=== PATIENT | female | born 1955 | race Caucasian/White ===

== ENCOUNTER 2019-10-07 10:07 | Outpatient (CLI) | payer OTHER, SELFPAY ==
--- NOTE | 2019-10-07 10:29 | MM_ITS ---
WS: [id number] BILATERAL DIGITAL SCREENING MAMMOGRAPHY WITH CAD CLINICAL INFORMATION: SCREEN HISTORY: Screening mammogram. No current complaints. COMPARISON: May 22, 2018 TECHNIQUE: Bilateral CC and MLO views. FINDINGS: Scattered fibroglandular densities bilaterally. Stable ovoid densitie mid depth left breast. This is unchanged from multiple prior examinations. No suspicious focal mass, asymmetry, calcifications, or a rchitectural distortion. No evidence of malignancy. MM/[place] [id number] IMPRESSION: BI-RADS: 2-Benign FOLLOW UP: 1 Year Follow-up Recommend return to annual screening mammography.
== END 2019-10-07 10:08 | disposition home or self-care (01) ==
LOC: RADSHAW 10:17
PROVIDERS: PCP Nurse Practitioner Family; Visit Provider Nurse Practitioner Family
DX: Z12.31 Encounter for screening mammogram for malignant neoplasm of breast (principal)
CPT/HCPCS: 77067

== ENCOUNTER 2020-11-14 11:47 | Outpatient (CLI) | payer OTHER, SELFPAY ==
--- NOTE | 2020-11-14 11:53 | MM_ITS ---
WS: [id number] SCREENING DIGITAL MAMMOGRAM WITH CAD HISTORY: SCREENING COMPARISON: 06/16/2010, 06/18/2011, 05/15/2017 and 10/07/2019 Bilateral CC and MLO views submitted. Computer aided detection analyzed. Breast composition: There are scattered areas of fibroglandular density. Long-term stability of an ov oid 2.7 cm mass in the central LEFT breast. Increasing asymmetry in the central RIGHT breast measurin g 1.5 cm is just posterior to the nipple on the CC projection. Not really identified on the lateral p rojection. MM/[place] [id number] IMPRESSION: BI-RADS: 0-Incomplete: Need additional imaging evaluation FOLLOW UP: Need Additional Imaging RIGHT breast: Spot compression views (CC and MLO). True ML. Ultrasound to follo w if abnormality persists.
== END 2020-11-14 11:48 | disposition home or self-care (01) ==
LOC: RADSHAW 11:51
PROVIDERS: PCP Nurse Practitioner Family; Visit Provider Nurse Practitioner Family
DX: Z12.31 Encounter for screening mammogram for malignant neoplasm of breast (principal)
CPT/HCPCS: 77067

== ENCOUNTER 2020-11-30 09:14 | Outpatient (CLI) | payer OTHER, SELFPAY ==
--- NOTE | 2020-11-30 09:19 | US_ITS ---
WS: [id number] ADDITIONAL VIEWS RIGHT BREAST RIGHT breast ultrasound, limited HISTORY: ABNORMAL MAMMOGRAM RT BREAST COMPARISON: 11/14/2020, 10/07/2019, 05/22/2018 Compression views right CC and MLO projection. True ML also submitted. The asymmetry in the mid RIGHT breast persists but there is no distortion associated with this asymmetry. This may be normal fibrog landular density. Ultrasound will be performed. Ultrasound directed from 11-1 o'clock. There is no soft tissue mass identified. No distortion of the soft tissues. US/US breast RT limited* [id number] IMPRESSION: BI-RADS: 3-Probably Benign FOLLOW-UP: 6 Month Follow-up Asymmetry in the RIGHT breast is probably normal fibroglandular pattern. As thi s has slightly changed since the prior imaging studies consider six-month diagn ostic mammogram follow-up RIGHT breast.
== END 2020-11-30 09:15 | disposition home or self-care (01) ==
LOC: RADSHAW 09:16
PROVIDERS: PCP Nurse Practitioner Family; Visit Provider Nurse Practitioner Family
DX: R92.8 Other abnormal and inconclusive findings on diagnostic imaging of breast (principal)
CPT/HCPCS: 76642; 77065

== ENCOUNTER 2021-06-15 09:15 | Outpatient (CLI) | payer OTHER, SELFPAY ==
--- NOTE | 2021-06-15 09:34 | MM_ITS ---
WS: [id number] DIAGNOSTIC RIGHT DIGITAL MAMMOGRAM WITH TOMOSYNTHESIS AND CAD HISTORY: Six-month follow-up RIGHT breast asymmetry centrally. COMPARISON: 11/30/2020, 10/07/2019, 05/15/2017 Technique: CC, MLO and ML views. Spot compression RIGHT MLO and cc. Breast composition: There are scattered areas of fibroglandular density. The asymmetry previously de scribed in the central RIGHT breast is no longer apparent. Mammographic findings are very similar to prior study from 2018. No new calcifications or increasing calcifications. No mass or distortion. MM/[place] [id number] IMPRESSION: BI-RADS: 2-Benign FOLLOW UP: See Report Patient to return to annual screening mammography. Annual mammogram is anticipa ly to be performed in October 2021.
== END 2021-06-15 09:16 | disposition home or self-care (01) ==
LOC: RAD 09:15
PROVIDERS: PCP Nurse Practitioner Family; Visit Provider Nurse Practitioner Family
DX: R92.0 Mammographic microcalcification found on diagnostic imaging of breast (principal)
CPT/HCPCS: 77061

== ENCOUNTER → 2021-10-24 11:44 | Outpatient (BNVA) | payer OTHER, SELFPAY | PROVIDERS: PCP Family Medicine; Visit Provider Family Medicine | DX: Z12.39 Encounter for other screening for malignant neoplasm of breast (principal); Z91.89 Other specified personal risk factors, not elsewhere classified; D69.59 Other secondary thrombocytopenia; T50.905A Adverse effect of unspecified drugs, medicaments and biological substances, initial encounter; I10 Essential (primary) hypertension; E78.5 Hyperlipidemia, unspecified; R73.9 Hyperglycemia, unspecified; G47.30 Sleep apnea, unspecified | CPT/HCPCS: 80053; 80061; 83036; 83721; 85025 ==

== ENCOUNTER → 2021-10-25 10:00 | Outpatient (BNVA) | payer OTHER, SELFPAY | PROVIDERS: PCP Family Medicine; Visit Provider Family Medicine | DX: Z12.39 Encounter for other screening for malignant neoplasm of breast (principal); Z91.89 Other specified personal risk factors, not elsewhere classified; D69.59 Other secondary thrombocytopenia; T50.905A Adverse effect of unspecified drugs, medicaments and biological substances, initial encounter; I10 Essential (primary) hypertension; E78.5 Hyperlipidemia, unspecified; R73.9 Hyperglycemia, unspecified; G47.30 Sleep apnea, unspecified | CPT/HCPCS: 84443 ==

== ENCOUNTER 2021-11-16 10:35 | Outpatient (CLI) | payer OTHER, SELFPAY ==
--- NOTE | 2021-11-16 10:45 | MM_ITS ---
WS: [id number] BILATERAL SCREENING DIGITAL TOMOSYNTHESIS MAMMOGRAM WITH CAD HISTORY: breast cancer screening COMPARISON: 10/07/2019, 11/14/2020, 05/22/2018 and 04/25/2016 Bilateral CC and MLO views with tomosynthesis and synthetic mammography submitted. Computer aided det ection analyzed. Breast composition: There are scattered areas of fibroglandular density. No suspicious masses, microc alcifications or architectural distortion. Long-term stability of a well-circumscribed ovoid mass shanel tral LEFT breast measuring 2.8 x 1.5 cm. No new mass or distortion. MM/[place] [id number] IMPRESSION: BI-RADS: 2-Benign FOLLOW UP: 1 Year Follow-up
== END 2021-11-16 10:36 | disposition home or self-care (01) ==
PROVIDERS: PCP Family Medicine; Visit Provider Family Medicine
DX: Z12.31 Encounter for screening mammogram for malignant neoplasm of breast (principal)
CPT/HCPCS: 77063; 77067

== ENCOUNTER → 2022-06-25 09:53 | Outpatient (BNVA) | payer MEDICARE, OTHER, SELFPAY | PROVIDERS: PCP Family Medicine; Visit Provider Family Medicine | DX: I10 Essential (primary) hypertension (principal); E78.5 Hyperlipidemia, unspecified; R73.9 Hyperglycemia, unspecified; D69.59 Other secondary thrombocytopenia; T50.905A Adverse effect of unspecified drugs, medicaments and biological substances, initial encounter; F41.9 Anxiety disorder, unspecified; G47.30 Sleep apnea, unspecified; M19.90 Unspecified osteoarthritis, unspecified site | CPT/HCPCS: 80048; 80061; 83036; 85025 ==

== ENCOUNTER → 2022-07-10 08:10 | Outpatient (BNVA) | payer MEDICARE, OTHER, SELFPAY | PROVIDERS: PCP Family Medicine; Visit Provider Family Medicine | DX: E78.5 Hyperlipidemia, unspecified (principal); R73.9 Hyperglycemia, unspecified | CPT/HCPCS: 85025 ==

== ENCOUNTER 2022-11-28 14:03 | Outpatient (CLI) | payer MEDICARE, OTHER, SELFPAY ==
--- NOTE | 2022-11-28 14:08 | MM_ITS ---
WS: [id number] Bilateral screening 3D tomosynthesis digital mammogram, 11/28/2022 Clinical Data: SCREENING Comparison: 11/16/2021 06/16/2019 to 11/30/2020 10/14/2020 10/07/2019, 05/22/2018, 05/15/2017, 04/25/2016, 03/22, 08/12/2013, 06/16/2012, 06/18/2011, 06/16/2010, 06/15/2009 Findings: The breast parenchymal pattern shows fibroglandular tissue. No spiculated masses or clustered calcifi cations are seen. There are no secondary signs of carcinoma. There is a stable 2.7 cm nodule in the c entral portion of the left breast. There are lymph nodes in both axilla. Impression: 1. Negative bilateral mammogram unchanged. 2. Recommend annual screening mammograms. MM/[place] [id number] BIRADS: 1-Negative FOLLOW UP: 1 Year Follow-up The CAD calibration checker was used.
== END 2022-11-28 14:04 | disposition home or self-care (01) ==
PROVIDERS: PCP Family Medicine; Visit Provider Family Medicine
DX: Z12.31 Encounter for screening mammogram for malignant neoplasm of breast (principal)
CPT/HCPCS: 77063; 77067

== ENCOUNTER 2022-12-11 10:34 | Observation (INO) | payer MEDICARE, OTHER, SELFPAY ==
--- NOTE | 2022-12-07 10:23 | ANES.PREANE2 ---
Pre-Anesthetic Assessment Height/Weight: Height 1.8 m Operation Date: 12/11/22 08:40 Proposed Procedures p Anterior colporrhaphy 44635, single incision midurethral sling 31430,N81.10(Not Applicable) - Manuel Reyes MD s Sling Single Incision Midurethral Sling(Not Applicable) - Manuel Reyes MD Familial anesthetic complications: none Social No alcohol and No tobacco Exam alert, oriented x 3, clear to auscultation bilaterally and regular rate & rhythm Airway Dentition: false CV/HEM Hypertension Metabolic Hyperlipidemia Anesthetic Plan ASA status: 2 Anesthesia: General Risk of > 500 ml blood loss (7ml/kg in children): No Medications/Allergies Home Medications Medication Instructions Recorded Confirmed Last Taken Type atorvastatin 40 mg tablet See Rx Instructions .Route 07/02/22 12/07/22 12/06/22 Rx .COMPLEX #90 tabs ezetimibe 10 mg tablet See Rx Instructions .Route 07/02/22 12/07/22 12/07/22 Rx .COMPLEX #90 tabs CPAP supplies #1 ea 08/27/22 12/03/22 Unknown Rx amlodipine 5 mg tablet See Rx Instructions .Route 09/03/22 12/07/22 12/07/22 Rx .COMPLEX #90 tabs losartan 100 mg tablet See Rx Instructions .Route 09/03/22 12/07/22 12/07/22 Rx .COMPLEX #90 tabs escitalopram oxalate 10 mg tablet 15 mg PO DAILY #90 tabs 09/17/22 12/03/22 12/07/22 Rx gabapentin 300 mg capsule 300 mg PO TID 90 days #270 caps 09/17/22 12/07/22 12/07/22 Rx lidocaine 5 % topical patch 1 patch topical DAILY #30 ea 09/17/22 12/07/22 12/07/22 Rx methocarbamol 750 mg tablet 750 mg PO QID 90 days #360 tabs 09/17/22 12/07/22 12/07/22 Rx indapamide 2.5 mg tablet See Rx Instructions .Route 09/24/22 12/07/22 12/07/22 Rx .COMPLEX #90 tabs Allergies Allergy/AdvReac Type Severity Reaction Status Date / Time penicill Allergy rash Uncoded 09/27/22 14:44 [facility] Anesthesia Medical History Anxiety At high risk for breast cancer Cholelithiases Drug-induced ITP HCTZ-induced ITP History of abnormal mammogram History of kidney stones History of tobacco use Hyperlipidemia Hypertension Low back pain Lumbar spondylolysis Retinal hemorrhage of right eye Sleep apnea with use of continuous positive airway pressure (CPAP) Surgical History History of appendectomy History of bladder suspension procedure History of bone marrow biopsy History of bunionectomy of left great toe History of carpal tunnel surgery of right wrist History of hysterectomy Family History Mother Cancer breast Father CAD (coronary artery disease) Sister Cancer breast Social History Smoking and tobacco/nicotine status: former use of tobacco/nicotine Quit status (tobacco/nicotine): has quit using Year quit tobacco: 2020 Former quit date comment: 40 pack year history Substance/Drug Use: never Data Anesthesia Cardiac Studies: No Data to Display
[2022-12-07 10:28] LABS: Add Urine Microscopic? NO; Charge for UA Resulting for Rev
[2022-12-07 10:43] LABS: Basophils # 0.1 10^3/uL (0.0-0.1); Basophils % 0.6 %; Eosinophils # 0.3 10^3/uL (0.0-0.8); Eosinophils % 4.1 %; Lymphocytes # 2.1 10^3/uL (0.8-4.8); Lymphocytes % 26.4 %; Mean Corpuscular HGB Conc 34.8 g/dL (30-55); Mean Corpuscular Hemoglobin 30.5 pg (27-33); Mean Corpuscular Volume 87.7 fl (85-98); Mean Platelet Volume 11.4 fL (7.4-10.4); Monocytes # 0.5 10^3/uL (0.2-0.9); Monocytes % 6.3 %; Neutrophils # 4.86 10^3/uL (1.8-7.7); Neutrophils % 62.5 %; Nucleated Red Blood Cells % 0 %; Platelet Count 187 10^3/cmm (157-399); Red Blood Count 4.56 10^6/uL (3.85-5.65); Red Cell Distribution Width 12.6 % (12.1-15.1); White Blood Count 7.79 10^3/uL (3.29-11.43)
[2022-12-07 10:49] LABS: Urine Color Light yellow (Yellow)
[2022-12-07 10:50] LABS: Bilirubin Urine Neg (Negative); Blood Urine Neg (Negative); Glucose Urine UA Norm (Normal); Ketones Urine Negative (Negative); Leukocyte Esterase Urine Negative (Negative); Nitrate Urine Negative (Negative); Protein Urine Neg (Negative); Specific Gravity, Urine 1.005 (1.005-1.030); Sulfosalicylic Acid Urine Negative (Negative); Urine Appearance Clear (CLEAR); Urobilinogen Urine Norm (Negative); pH Urine 8 (5-7)
[2022-12-07 10:55] LABS: Alanine Aminotransferase 17 U/L (0-33); Albumin Level 4.3 g/dL (3.5-5.2); Alkaline Phosphatase 99 U/L (35-105); Anion Gap 16.5 (5-19); Aspartate Amino Transferase 17 U/L (0-32); Blood Urea Nitrogen 12 mg/dL (8-23); Calcium 9.4 mg/dL (8.5-10.5); Carbon Dioxide 26 mmol/L (22-29); Chloride 100 mmol/L (98-107); Globulin 2.8 g/dL (1.3-4.6); Glucose 147 mg/dL (65-115); Osmolality Calculated 290 mOsm/kg (285-295); Potassium 3.5 mmol/L (3.5-5.1); Sodium 139 mmol/L (136-145); Total Bilirubin 0.6 mg/dL (0.15-1.2); Total Protein 7.1 g/dL (6.6-8.7)
[2022-12-11] VITALS (20 sets, daily range): BP systolic 121–177; BP diastolic 57–90; PULSE 48–72; RESP 13–28; TEMP 36.2–37.1; O2SAT 89–98; BMI 32.8
[2022-12-11] MEDS: enoxaparin 40 mg/0.4 mL Syringe SUBCUT (07:37)
[2022-12-11] MEDS: scopolamine 1.5 Patch 1 PATCH TRANSDERMA (07:38)
--- NOTE | 2022-12-11 07:38 | P.ANESUD_ITS ---
Pre-Anesthetic Update Pre-Anesthetic Assessment: Date of Surgery/Procedure: 12/11/22 Preop Marika gnosis: Cystocele stage III, mixed urinary incontinence Proposed Procedure: Operation Date: 12/11/22 08:40 Proposed Procedures p Anterior colporrhaphy 26273, single incision midurethral sling 16571,N81.10(Not Applicable) - Manuel eRyes MD s Sling Single Incision Midurethral Sling(Not Applicable) - Manuel Reyes MD Any changes to Pre-Anesthetic Assessment?: No Last Intake: Intake Last Liquid Date 12/10/22 Last Liquid Time 23:00 Last Solid Date 12/10/22 Last Solid Time 17:00 Vitals: Pulse Rhythm Regular 12/11/22 07:09 Pulse Strength 3+ Normal 12/11/22 07:09 Oxygen Delivery Me thod Room Air 12/11/22 07:09 Exam: Pre-Anes Outpt Exam: alert, oriented x 3, clear to auscultation bilaterally and regular rate & rhythm Cardiac Studies: No Data to Display
--- NOTE | 2022-12-11 07:38 | P.ANESUD_ITS ---
Pre-Anesthetic Update Pre-Anesthetic Assessment: Date of Surgery/Procedure: 12/11/22 Preop Marika gnosis: Cystocele stage III, mixed urinary incontinence Proposed Procedure: Operation Date: 12/11/22 08:40 Proposed Procedures p Anterior colporrhaphy 69213, single incision midurethral sling 72366,N81.10(Not Applicable) - Manuel Reyes MD s Sling Single Incision Midurethral Sling(Not Applicable) - Manuel Reyes MD Any changes to Pre-Anesthetic Assessment?: No Last Intake: Intake Last Liquid Date 12/10/22 Last Liquid Time 23:00 Last Solid Date 12/10/22 Last Solid Time 17:00 Vitals: Pulse Rhythm Regular 12/11/22 07:09 Pulse Strength 3+ Normal 12/11/22 07:09 Oxygen Delivery Me thod Room Air 12/11/22 07:09 Exam: Pre-Anes Outpt Exam: alert, oriented x 3, clear to auscultation bilaterally and regular rate & rhythm Other Pertinent Information: Other Pertinent Information: Took am BP med Cardiac Studies: No Data to Display
[2022-12-11] MEDS: sodium chloride 0.9% 1,000 ML 30 ML IV (07:50)
--- NOTE | 2022-12-11 08:34 | W.PM.OPSUD ---
Surgery/Procedure H&P Update DATE OF PROCEDURE: December 11, 2022 DATE H&P PERFORMED: 12/03/22 H&P UPDATE INFORMATION: I have reviewed H&P completed within last 30 days, I have examined patient prior to procedure and No changes to prior documentation PREOP DIAGNOSIS: Cystocele stage III, mixed urinary incontinence PLANNED PROCEDURE: Operation Date: 12/11/22 08:40 Proposed Procedures p Anterior colporrhaphy 78935, single incision midurethral sling 30581,N81.10(Not Applicable) - Manuel Reyes MD s Sling Single Incision Midurethral Sling(Not Applicable) - Manuel Reyes MD
[2022-12-11] MEDS: ceFAZolin 2,000 MG in sodium chloride 0.9% (plus) 50 ML 100 MG IV (08:44)
[2022-12-11] MEDS: lidocaine-epi 2% 20 mL INJ INJECTION (09:55)
[2022-12-11] MEDS: estrogens Conjugated Cream 30 gm 1 APPLIC VAGINAL (10:09)
--- NOTE | 2022-12-11 10:21 | P.OP_ITS ---
Operative Report Date of procedure: December 11, 2022 Pre-op diagnosis: Cystocele stage III Mixed urinary incontinence Post-op diagnosis: Same as above Procedure done: Anterior colporrhaphy augmented with allograft Single incision mid urethral sling Cystoscopy Surgeon: Manuel Reyes MD Estimated blood loss (mL): 100 IV fluids (mL): 900 Urine output (mL): 150 Procedure: After obtaining informed consent, the patient was taken to the operating room and placed in the supine position, given general anesthesia, and prepped and draped in sterile fashion. The abdomen, vulva and vagina were prepped and draped in a sterile manner. A time out procedure was performed. The anterior vaginal mucosa beneath the midurethra was infiltrated with 0.5% Marcaine with epinephrine. A vertical midline incision was made beneath the midurethra, nearly 1.5 cm length. Careful submucosal dissection was performed bilaterally up to the interior portion of the inferior pubic ramus. The insertion of adductor longus tendon on the patient?s pubic ramus was identified as reference land mansi. Palpated the notch along the internal edge of ischiopubic ramus where the adductor longus tendon and the inferior pubic ramus meet. The Altis single incision sling (SIS) was selected. Then the needle of the SIS inserted aiming at the location of this notch. One of the integrated self-fixating tips place onto the needle by sliding it over the end of the needle. The needle/sling assembly was inserted toward the location of identified reference notch making sure that the flat of the handle is perpendicular to the desired path. The needle was tracked along the posterior surface of the ischiopubic ramus until the midline mansi on the mesh is approximately at the midline position under the urethra. The needle was removed and the same was repeated on the contralateral side until the appropriate sling tension under the urethra was achieved ensuring that the mesh lays flat. The needle was removed and vaginal incision was closed in a running interlocking fashion with 2-0 Vicryl. The vaginal mucosa was then injected in the midline with normal saline. The vaginal mucosa was scored in the midline with the Bovie approximately 1 cm medi al to the urethral meatus to 1 cm distal to the vaginal cuff. This vaginal mucosa was then undermined and then incised in the midline with the Metzenbaum scissors. The lateral aspects of the vaginal mucosa were then grasped with the Allis clamps and the vaginal mucosa was then dissected off the underlying fascia with the Metzenbaum scissors. Again, there was noted to be quite a bit of oozing at the incision, which was controlled with cautery. After adequate dissection was performed, bilaterally. An Coloplast Dermis allograft modified at time of application to fit spacea, 3x3 cm piece . The Coloplast allograft placed in front of cystocele ready to be implanted facing the vagina mucosa. Suture is placed at distal end of graft and placed towards vaginal cuff. Final suture is placed on proximal portion of the graft to complete the placement overlying the bladder. Then Interrupted vertical mattress sutures of 0 Vicryl were used to elevate the cystocele superiorly. The excessive vaginal mucosa was then trimmed with the Metzenbaum scissors and the vaginal mucosa was then reapproximated in the running interlocking fashion with 2-0 Vicryl. Then the Roberson catheter was removed and cystoscope was inserted. The bladder was filled with sterile water. Complete evaluation of the bladder mucosa was performed noting no lacerations, dimpling, tears, bleeding of the mucosa or muscular layers. Both ureteral orifices were identified. Prompt excretion of urine from both ureteral orifices was noted. Cystoscope was withdrawn. The Roberson catheter was replaced. Excellent hemostasis was obtained. A vaginal pack is placed overnight as postoperative support for the vaginal tissues after graft placement and closure of vaginal incisions. Sponge, lap, needle, and instrument counts were correct times three. The patient was taken to the recovery room, awake and in stable condition.
--- NOTE | 2022-12-11 10:51 | PC.NURSE ---
1049 - Report called to [facility] - notified OB nurse of packing in place - as well as current vital signs and medications given in OR
[2022-12-11] MEDS: dextrose 5%-lactated ringers 1,000 ML 125 ML IV ×2 (11:30→22:51)
[2022-12-11] MEDS: HYDROcodone-acetaminophen 5-325 mg Tablet PO ×2 (11:30→20:59)
[2022-12-11] MEDS: ketorolac 30 mg/mL INJ IVP ×3 (11:43→22:50)
[2022-12-11] MEDS: docusate sodium 100 mg Capsule PO (16:37)
--- NOTE | 2022-12-11 16:56 | ANE.PACU2 ---
Inpatient post-anesthesia follow up: Airway intact: Yes Vital signs: Temperature 97.9 F Pulse Rate 53 Respiratory Rate 16 Blood Pressure 137/64 Pulse Oximetry 91 Oxygen Delivery Me thod Room Air Oxygen Flow Rate Fraction of Inspir ed Oxygen Hydration adequate: Yes Nausea and vomiting: No Pain level: 3 Mental status: Baseline
[2022-12-11] MEDS: gabapentin 300 mg Capsule PO (18:23)
[2022-12-11] MEDS: escitalopram 10 mg Tablet 15 MG PO (20:56)
[2022-12-11] MEDS: atorvastatin 40 mg Tablet PO (20:57)
[2022-12-11] MEDS: ezetimibe 10 mg Tablet PO (20:57)
[2022-12-11] MEDS: amlodipine 5 mg Tablet PO (20:57)
[2022-12-12 04:00] VITALS: BP 138/72; PULSE 52; RESP 15; TEMP 37; O2SAT 98
[2022-12-12] MEDS: HYDROcodone-acetaminophen 5-325 mg Tablet PO (04:44)
[2022-12-12 05:17] LABS: Hematocrit 32.2 % (36-47); Mean Corpuscular HGB Conc 32.9 g/dL (30-55); Mean Corpuscular Hemoglobin 29.9 pg (27-33); Mean Platelet Volume 10.2 fL (7.4-10.4); Platelet Count 172 10^3/cmm (157-399); Red Blood Count 3.54 10^6/uL (3.85-5.65); Red Cell Distribution Width 12.3 % (12.1-15.1); White Blood Count 12.56 10^3/uL (3.29-11.43)
--- NOTE | 2022-12-12 05:26 | PC.NURSE ---
THIS SLOTS MANAGER REMOVED VAGINAL PACKING AT APPROXIMATELY 0515. PT TOLERATED WELL.
[2022-12-12 08:51] VITALS: BP 118/56
[2022-12-12] MEDS: gabapentin 300 mg Capsule PO (08:51)
[2022-12-12] MEDS: methocarbamol 750 mg Tablet PO (08:51)
[2022-12-12] MEDS: losartan 50 mg Tablet 100 MG PO (08:51)
[2022-12-12] MEDS: docusate sodium 100 mg Capsule PO (08:54)
--- NOTE | 2022-12-12 10:03 | PM.OBGYDC ---
Discharge Providers PHOTO FINISH PHOTOGRAPHER Date of Admission: 12/11/22 10:34 Date of Discharge: 12/12/22 Attending Provider at Admission: Manuel Reyes MD Attending Provider at Discharge: Manuel Reyes MD Primary Care Provider: Kaitlin Rankin MD Reason for Visit Reason for Visit: N81.10 Hospital Course Hospital Course Mrs. Mercado 66-year-old female post hysterectomy with a history of cystocele and urinary incontinence. Admitted for an anterior colporrhaphy and single incision mid urethral sling. The procedures were performed without complications. She is afebrile and hemodynamically stable postoperative day 1. Ambulating without difficulty. Tolerating diet well. PVR within normal limits.. She was counseled regarding pelvic rest for 6 weeks (no sex, no tampons, no vaginal douches). Return to the emergency room if any fever, increased bleeding or pain. Physical Exam Narrative: GA: Alert and oriented ?3. HEENT: WNL. Heart: Regular rate and rhythm. Lungs: Clear to auscultation bilaterally. Abdomen: Bowel sounds present, nontender, minimal tenderness. [employer]: spotting bleeding. Extremities: No edema, no cyanosis, no calves pain. Urinary Catheter Management: [place]: Cath Placed During This Visit: yes, but has since been removed by the nurse Reason for Continuing Indwelling Catheter: Decision to DC Catheter Urinary Catheter Date of Insertion: 12/11/22 Urinary Catheter Time of Insertion: 09:06 Date Urinary Catheter Removed: 12/12/22 Time Urinary Catheter Discontinued: 05:15 History History History 2 Term 2 0 Miscarriages/Ectopic 0 Living Children 2 Discharge Data Studies Completed and Pending Laboratory Results WBC 12.56 10^3/uL (3.29-11.43) H 12/12/22 05:00 RBC 3.54 10^6/uL (3.85-5.65) L 12/12/22 05:00 Hgb 10.60 g/dL (11.27-16.99) L 12/12/22 05:00 Hct 32.2 % (36-47) L 12/12/22 05:00 MCV 91.0 fl (85-98) 12/12/22 05:00 MCH 29.9 pg (27-33) 12/12/22 05:00 MCHC 32.9 g/dL (30-55) 12/12/22 05:00 RDW 12.3 % (12.1-15.1) 12/12/22 05:00 Plt Count 172 10^3/cmm (157-399) 12/12/22 05:00 MPV 10.2 fL (7.4-10.4) 12/12/22 05:00 Neut % (Auto) 62.5 % 12/07/22 10:00 Lymph % (Auto) 26.4 % 12/07/22 10:00 [facility] % (Auto) 6.3 % 12/07/22 10:00 Eos % (Auto) 4.1 % 12/07/22 10:00 Baso % (Auto) 0.6 % 12/07/22 10:00 Neut # (Auto) 4.86 10^3/uL (1.8-7.7) 12/07/22 10:00 Lymph # (Auto) 2.1 10^3/uL (0.8-4.8) 12/07/22 10:00 [facility] # (Auto) 0.5 10^3/uL (0.2-0.9) 12/07/22 10:00 Eos # (Auto) 0.3 10^3/uL (0.0-0.8) 12/07/22 10:00 Baso # (Auto) 0.1 10^3/uL (0.0-0.1) 12/07/22 10:00 Nucleated RBC % (auto) 0 % 12/07/22 10:00 Nucleated RBCs # 0.0 /100WBC 12/07/22 10:00 Sodium 139 mmol/L (136-145) 12/07/22 10:00 Potassium 3.5 mmol/L (3.5-5.1) 12/07/22 10:00 Chloride 100 mmol/L (98-107) 12/07/22 10:00 Carbon Dioxide 26 mmol/L (22-29) 12/07/22 10:00 Anion Gap 16.5 (5-19) 12/07/22 10:00 BUN 12 mg/dL (8-23) 12/07/22 10:00 Creatinine 0.7 mg/dL (0.5-0.9) 12/07/22 10:00 GFR Calculation 84.0 mL/min (90-130) L 12/07/22 10:00 Glucose 147 mg/dL (65-115) H 12/07/22 10:00 Calculated Osmolality 290 mOsm/kg (285-295) 12/07/22 10:00 Calcium 9.4 mg/dL (8.5-10.5) 12/07/22 10:00 Total Bilirubin 0.6 mg/dL (0.15-1.2) 12/07/22 10:00 AST 17 U/L (0-32) 12/07/22 10:00 ALT 17 U/L (0-33) 12/07/22 10:00 Alkaline Phosphatase 99 U/L (35-105) 12/07/22 10:00 Total Protein 7.1 g/dL (6.6-8.7) 12/07/22 10:00 Albumin 4.3 g/dL (3.5-5.2) 12/07/22 10:00 Globulin 2.8 g/dL (1.3-4.6) 12/07/22 10:00 Urine Color Light yellow (Yellow) 12/07/22 10:00 Urine Appearance Clear (CLEAR) 12/07/22 10:00 Urine pH 8 (5-7) H 12/07/22 10:00 Ur Specific [place] 1.005 (1.005-1.030) 12/07/22 10:00 Urine Protein Neg (Negative) 12/07/22 10:00 Urine Glucose (UA) Norm (Normal) 12/07/22 10:00 Urine Ketones Negative (Negative) 12/07/22 10:00 Urine Blood Neg (Negative) 12/07/22 10:00 Urine Nitrate Negative (Negative) 12/07/22 10:00 Urine Bilirubin Neg (Negative) 12/07/22 10:00 Prot Sulfosalicylic Acd Negative (Negative) 12/07/22 10:00 Urine Urobilinogen Norm mg/dL (Negative) 12/07/22 10:00 Ur Leukocyte Esterase Negative (Negative) 12/07/22 10:00 Vitals Last Vital Signs Temp 98.6 F 12/12/22 04:00 Pulse 52 L 12/12/22 04:00 Resp 15 12/12/22 04:00 BP 118/56 12/12/22 08:51 Pulse Ox 98 12/12/22 04:00 O2 Del Method CPAP 12/12/22 04:00 Results Labs OB ([facility]): Hct 32.2 % (36-47) L 12/12/22 Hgb 10.60 g/dL (11.27-16.99) L 12/12/22 Plt Count 172 10^3/cmm (157-399) 12/12/22 TSH 0.81 uIU/mL (0.27-4.20) 10/25/21 Hemoglobin A1c 6.5 % (4.0-6.0) H 06/25/22 Discharge Plan Discharge Patient Disposition: Home Condition: Stable Prescriptions: New hydrocodone-acetaminophen 5-325 mg tablet 1 tab PO Q4H PRN (Reason: pain) Qty: 20 0RF docusate sodium [Colace] 100 mg capsule 100 mg PO BID Qty: 60 0RF ferrous sulfate [Iron (ferrous sulfate)] 325 mg (65 mg iron) tablet 325 mg PO BID Qty: 60 0RF acetaminophen 325 mg capsule 325 mg PO Q4H PRN (Reason: fever or pain) Qty: 60 0RF Continued atorvastatin 40 mg tablet See Rx Instructions .ROUTE .COMPLEX Qty: 90 3RF Dose Instruction: TAKE 1 TABLET DAILY Rx Instructions: TAKE 1 TABLET DAILY ezetimibe 10 mg tablet See Rx Instructions .ROUTE .COMPLEX Qty: 90 3RF Dose Instruction: TAKE 1 TABLET DAILY Rx Instructions: TAKE 1 TABLET DAILY (DME) CPAP supplies See Rx Instructions .Route .MEDSUPPLY Qty: 1 0RF Rx Instructions: As directed losartan 100 mg tablet See Rx Instructions .ROUTE .COMPLEX Qty: 90 3RF Dose Instruction: TAKE 1 TABLET DAILY Rx Instructions: TAKE 1 TABLET DAILY amlodipine 5 mg tablet See Rx Instructions .ROUTE .COMPLEX Qty: 90 3RF Dose Instruction: TAKE 1 TABLET DAILY Rx Instructions: TAKE 1 TABLET DAILY escitalopram oxalate 10 mg tablet 15 mg PO DAILY Qty: 90 1RF gabapentin 300 mg capsule 300 mg PO TID 90 Days Qty: 270 1RF lidocaine 5 % adhesive patch,medicated 1 patch topical DAILY Qty: 30 0RF Rx Instructions: leave on most painful area for up to 12 hrs methocarbamol 750 mg tablet 750 mg PO QID 90 Days Qty: 360 1RF indapamide 2.5 mg tablet See Rx Instructions .ROUTE .COMPLEX Qty: 90 3RF Dose Instruction: TAKE 1 TABLET EVERY MORNING Rx Instructions: TAKE 1 TABLET EVERY MORNING Discharge Orders: Discharge Order (Routine); Ordered 12/12/22 Ordered By: Manuel Reyes Referrals: Manuel Reyes MD [Physician] - 12/25/22 1:30 pm (2 week- 12/25/22 @1:30 6 week- 01/21/23 @2:15) Discharge Diet: GI Soft and Soft Mechanical Discharge Activity: Limit activity as instructed Patient Instructions: Bladder Sling for Women (DC), Anterior Vaginal Repair (DC), OB Discharge Report, OB Food/Drug Interaction Guide, Opioid Safety Activity Restrictions/Additional Instructions: 1. Please call [facility] on next working day to make your post-operative appointment in 2 weeks. 2. Please stay home until you come back to the clinic on first post-hospatilization check up. 3. Please follow instructions on your medications CAREFULLY. 4. If you have abdominal incision, do not cover it unless dressing is necessary because of drainage. OK to shower, but avoid bath. Leave steri-strips until they fall off. If they are still on one week after surgery, you may remove them. 5. If you had vaginal surgery or vaginal repair, Dr. Reyes may instruct you to take SITZ bath. 6. Yellow, blood tinged odorous vaginal discharge is usually normal after hysterectomy or vaginal surgeries. 7. No SEXUAL INTERCOURSE, tampons, or douches until you are completely released from the post-operative care. 8. Avoid constipation by eating right and maybe using some Metamucil or Milk of Magnesia. 9. All prescription refills are given during the working hours. Please do no wait till it runs out. Call the clinic at [phone] before your medication runs out. The clinic will get in touch with your doctor to prescribe medications if necessary. 10. Please remain within 40 mile radius from our hospital because emergencies do happen now and then during the post-operative period. 11. If you have stairs at home, take one step at a time slowly and minimize the number of trips. It helps to stay in one floor for the next few days. No lifting except what you can lift by one hand until you are released from the post-operative care. 12. Driving is discouraged until you are well healed. It may be 3-4 weeks before you feel strong enough to drive. You should be able to turn and look through the rear window without pain and you should be able to push the brake pedal very hard without pain before you drive. No fast rules, but SAFETY should be your primary concern. DO NOT drive if you are on sedating medications such as narcotics. 13. Call the clinic (during working hours) to make urgent appointment or go to the Emergency room, if any of the following occurs: i. Vaginal bleeding becomes heavy, more than a period. ii. Incision becomes red and sore, or drains pus. iii. Your TEMPERATURE is over 100.4F or you have chill. iv. IV site becomes red and swollen (a little ``knot?? is usually OK) v. Persistent nausea and vomiting vi. Persistent constipation or diarrhea vii. Rash or allergic reaction to medications. Discharge Attestations PHOTO FINISH PHOTOGRAPHER Time Spent in Discharge Care*: greater than 30 min Coding Level of Care Code Acute Code for Chg Fwd Diagnoses
[2022-12-12 11:25] VITALS: BP 118/56; PULSE 64; RESP 16; TEMP 36.7; O2SAT 98
== END 2022-12-12 11:15 | disposition home or self-care (01) ==
LOC: OBGYN 10:35
PROVIDERS: Admitting Provider Obstetrics & Gynecology; PCP Family Medicine; Visit Provider Obstetrics & Gynecology
PROC: 0JQC0ZZ Repair Pelvic Region Subcutaneous Tissue and Fascia, Open Approach (ICD-10-PCS; CPT 57240; principal; 2022-12-11 08:40)
PROC: (CPT 57288; 2022-12-11 08:40)
DX: N81.10 Cystocele, unspecified (principal); N39.46 Mixed incontinence; Z87.891 Personal history of nicotine dependence; G47.33 Obstructive sleep apnea (adult) (pediatric); I10 Essential (primary) hypertension; E78.5 Hyperlipidemia, unspecified; Z90.710 Acquired absence of both cervix and uterus
CPT/HCPCS: 57240; 57267; 57288; 36415; 51798; 80053; 81003; 85025; 85027; 96374; 96376; C1713; C1762; G0378; J0690; J1100; J1650; J1885; J2405; J2704; J3010; J7030; J7121

== ENCOUNTER → 2023-02-20 09:13 | Outpatient (BNVA) | payer MEDICARE, OTHER, SELFPAY | PROVIDERS: PCP Family Medicine; Visit Provider Family Medicine | DX: D69.59 Other secondary thrombocytopenia (principal); T50.905A Adverse effect of unspecified drugs, medicaments and biological substances, initial encounter; R73.9 Hyperglycemia, unspecified; E78.5 Hyperlipidemia, unspecified; I10 Essential (primary) hypertension; L60.0 Ingrowing nail; M54.50 Low back pain, unspecified; F41.9 Anxiety disorder, unspecified; R05.9 Cough, unspecified | CPT/HCPCS: 80053; 80061; 83036; 85025 ==

== ENCOUNTER 2023-03-07 19:50 | Emergency (ER) | payer MEDICARE, OTHER, SELFPAY ==
[2023-03-07 19:54] VITALS: BP 208/71; PULSE 69; RESP 17; TEMP 36.6; O2SAT 96; BMI 32.1
[2023-03-07 21:33] LABS: Basophils # 0.1 10^3/uL (0.0-0.1); Basophils % 0.7 %; Eosinophils # 0.4 10^3/uL (0.0-0.8); Eosinophils % 3.5 %; Hematocrit 38.3 % (36-47); Lymphocytes % 28.7 %; Mean Corpuscular HGB Conc 33.4 g/dL (30-55); Mean Corpuscular Volume 89.9 fl (85-98); Mean Platelet Volume 10.5 fL (7.4-10.4); Monocytes # 0.6 10^3/uL (0.2-0.9); Monocytes % 5.5 %; Neutrophils # 6.42 10^3/uL (1.8-7.7); Neutrophils % 61.2 %; Nucleated Red Blood Cells % 0 %; Platelet Count 195 10^3/cmm (157-399); Red Blood Count 4.26 10^6/uL (3.85-5.65); Red Cell Distribution Width 12.7 % (12.1-15.1); White Blood Count 10.49 10^3/uL (3.29-11.43)
--- NOTE | 2023-03-07 21:36 | W.ED.BACK ---
Documented by User: Paul Tomlinson MD 03/08/23 23:00 HPI - Back Pain/Injury General: Chief Complaint: Back Pain/Injury Stated Complaint: back/bladder pain Time Seen by Provider: 03/07/23 21:36 History of Present Illness: 67-year-old female presents to the emergency department with complaints of right-sided low back pain. She states this has been ongoing since November 2022 and she states she is seen a chiropractor on a regular basis and was advised that they would be able to help correct her back pain. She states she was seen by the chiropractor yesterday and has continued to have right-sided back pain. She states the pain is to the right side of her back and does not radiate to her buttocks or her leg. 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 She states she takes gabapentin and methocarbamol and that does not help at present. She states the pain is worse with movement. She denies numbness or tingling to her extremities. She denies bowel or bladder incontinence or retention. 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 Hyperlipidemia Hypertension Surgical History S/P anterior colporrhaphy (~12/11/22) Anterior colporrhapy augmented with allograft, single incision mid urethral sling and cystoscopy performed by Eric at [facility] History of carpal tunnel surgery of right wrist History of bunionectomy of left great toe History of bladder suspension procedure History of hysterectomy History of appendectomy History of bone marrow biopsy Family History Mother Cancer breast Father CAD (coronary artery disease) Sister Cancer breast Physical Exam Narrative: EXAM NARRATIVE: Constitutional: the patient appears well nourished and with normal development. Vital signs reviewed as documented. HENMT: Normocephalic, atraumatic. External ears normal appearance without drainage. Nose without drainage, normal appearance. Mucus membranes moist. Neck is supple, No jugular venous distension, trachea is midline, no appreciable carotid bruits. No lymphadenopathy. No meningeal signs. Flexion, extension and lateral rotation is without pain. Eyes: Pupils are equal, round, reactive to light and accommodation. No scleral icterus. Extra-ocular movement are intact. Thorax is symmetrical and with equal rise and fall with respirations. Resp: Lungs are clear to auscultation. No wheezes, rales, crackles or ronchi at present. Cardio: Regular rate and rhythm. Positive S1, S2. No appreciable murmurs, rubs or gallops. GI: Abdominal exam reveals normal bowel sounds to all quadrants. No organomegaly. No obvious palpable masses noted. No hepatomegally appreciated. Soft, non-tender to palpation. Extremity: Extremities are non-edematous and both femoral and pedal pulses are 2+ and equal bilaterally. Moves all extremities well, sensation in all extremities. Neuro: Alert and oriented x4, person, place, time and situation. Cranial nerves II through XII are grossly intact, there is no focal neurological deficits that I can appreciate at present. Motor strength in the upper and lower extremities are equal and bilateral 5/5. Psych: Cooperative, calm, normal thought process, appropriate judgment. Skin: No lesions, rashes. No gross abnormalities noted. Back: Symmetrical, no obvious deformity, No CVA tenderness. Tenderness to palpation to the right lower strap muscle. No obvious signs of infection. Course Vital Signs: Vital signs: Vital Signs Temperature 97.8 F 03/07/23 19:54 Pulse Rate 57 L 03/07/23 22:54 Respiratory Rate 16 03/07/23 22:10 Blood Pressure 160/70 03/07/23 22:54 Pulse Oximetry 95 03/07/23 22:54 Oxygen Delivery Me thod Room Air 03/07/23 22:10 MDM - Back Pain/Injury Medical Decision Making Physical exam completed and documented, I will obtain radiographic examination of her lumbar and thoracic spine and provide the patient with Toradol anti-inflammatory as well as Flexeril written prescription. I have discussed the patient's case with the on-coming physician <Dr. Valentin > and they have assumed care of the patient. We have discussed the current lab/radiographic results that have been resulted and the pending tests. Medical Records I reviewed the patient's medical records. Labs I reviewed the patient's lab results. 03/07/23 21:27 03/07/23 21: Radiology Impressions Lumbar Spine X-Ray 03/07/23 22:02 IMPRESSION: 1. Lumbar spine levoscoliosis with a Tierney angle of 16 degrees between superior endplate of L1 and inferior endplate of L5. 2. Multilevel severe disc space narrowing and productive degenerative endplate changes throughout the spine. 3. Scattered vascular calcifications. Thoracic Spine X-Ray 03/07/23 22:02 IMPRESSION: 1. Multilevel moderate to severe disc space narrowing and productive degenerative endplate changes throughout spine. 2. Bibasilar atelectasis versus infiltrate. Laboratory Results WBC 10.49 10^3/uL (3.29-11.43) 03/07/23 21: RBC 4.26 10^6/uL (3.85-5.65) 03/07/23 21: Hgb 12.80 g/dL (11.27-16.99) 03/07/23: Hct 38.3 % (36-47) 03/07/23: MCV 89.9 fl (85-98) 03/07/23 21: MCH 30.0 pg (27-33) 03/07/23 21: MCHC 33.4 g/dL (30-55) 03/07/23: RDW 12.7 % (12.1-15.1) 03/07/23 21: Plt Count 195 10^3/cmm (157-399) 03/07/23: MPV 10.5 fL (7.4-10.4) H 03/07/23: Neut % (Auto) 61.2 % 03/07/23: Lymph % (Auto) 28.7 % 03/07/23 21: [place] % (Auto) 5.5 % 03/07/23: Eos % (Auto) 3.5 % 03/07/23: Baso % (Auto) 0.7 % 03/07/23: Neut # (Auto) 6.42 10^3/uL (1.8-7.7) 03/07/23: Lymph # (Auto) 3.0 10^3/uL (0.8-4.8) 03/07/23 21: [place] # (Auto) 0.6 10^3/uL (0.2-0.9) 03/07/23: Eos # (Auto) 0.4 10^3/uL (0.0-0.8) 03/07/23: Baso # (Auto) 0.1 10^3/uL (0.0-0.1) 03/07/23: Nucleated RBC % (auto) 0 % 03/07/23 Nucleated RBCs # 0.0 /100WBC 03/07/23: Sodium 137 mmol/L (136-145) 03/07/23: Potassium 3.6 mmol/L (3.5-5.1) 03/07/23: Chloride 100 mmol/L (98-107) 03/07/23: Carbon Dioxide 24 mmol/L (22-29) 03/07/23: Anion Gap 16.6 (5-19) 03/07/23 21: BUN 23 mg/dL (8-23) 03/07/23: Creatinine 0.8 mg/dL (0.5-0.9) 03/07/23: GFR Calculation 72.0 mL/min (90-130) L 03/07/23: Glucose 237 mg/dL (65-115) H 03/07/23: Calculated Osmolality 295 mOsm/kg (285-295) 03/07/23: Calcium 9.8 mg/dL (8.5-10.5) 03/07/23: Total Bilirubin 0.2 mg/dL (0.15-1.2) 03/07/23: AST 22 U/L (0-32) 03/07/23: ALT 22 U/L (0-33) 03/07/23: Alkaline Phosphatase 95 U/L (35-105) 03/07/23: Total Protein 7.3 g/dL (6.6-8.7) 03/07/23 21:27 Albumin 4.4 g/dL (3.5-5.2) 03/07/23 21:27 Globulin 2.9 g/dL (1.3-4.6) 03/07/23 21:27 Lipase 17 U/L (13-60) 03/07/23 21:27 Urine Color Colorless (Yellow) 03/07/23 21:37 Urine Appearance Clear (CLEAR) 03/07/23 21:37 Urine pH 7 (5-7) 03/07/23 21:37 Ur Specific Fries 1.010 (1.005-1.030) 03/07/23 21:37 Urine Protein Neg (Negative) 03/07/23 21:37 Urine Glucose (UA) Norm (Normal) 03/07/23 21:37 Urine Ketones Negative (Negative) 03/07/23 21:37 Urine Blood Neg (Negative) 03/07/23 21:37 Urine Nitrate Negative (Negative) 03/07/23 21:37 Urine Bilirubin Neg (Negative) 03/07/23 21:37 Urine Urobilinogen Norm mg/dL (Negative) 03/07/23 21:37 Ur Leukocyte Esterase Negative (Negative) 03/07/23 21:37 Discharge Plan Discharge Patient Disposition: Home Clinical Impression: Back pain Condition: Stable Prescriptions: New Naprosyn 500 mg tablet 500 mg PO BID PRN (Reason: pain) Qty: 20 0RF No Action gabapentin 300 mg capsule 300 mg PO TID 90 Days Qty: 270 1RF escitalopram oxalate 10 mg tablet 15 mg PO DAILY Qty: 90 1RF methocarbamol 750 mg tablet 750 mg PO QID 90 Days Qty: 360 1RF celecoxib [Celebrex] 100 mg capsule 100 mg PO BID Qty: 180 0RF guaifenesin 600 mg tablet extended release 12hr 600 mg PO BID Qty: 30 0RF estradiol 0.01 % (0.1 mg/gram) cream 1 g vaginal DAILY Qty: 42.5 0RF Rx Instructions: for 14 days oxybutynin chloride 5 mg tablet 5 mg PO DAILY Qty: 90 0RF albuterol sulfate 2.5 mg /3 mL (0.083 %) solution for nebulization 2.5 mg inhalation Q4H PRN (Reason: shortness of breath or wheezing) Qty: 75 0RF atorvastatin 40 mg tablet See Rx Instructions .ROUTE .COMPLEX Qty: 90 3RF Dose Instruction: TAKE 1 TABLET DAILY Rx Instructions: TAKE 1 TABLET DAILY ezetimibe 10 mg tablet See Rx Instructions .ROUTE .COMPLEX Qty: 90 3RF Dose Instruction: TAKE 1 TABLET DAILY Rx Instructions: TAKE 1 TABLET DAILY (DME) CPAP supplies See Rx Instructions .Route .MEDSUPPLY Qty: 1 0RF Rx Instructions: As directed losartan 100 mg tablet See Rx Instructions .ROUTE .COMPLEX Qty: 90 3RF Dose Instruction: TAKE 1 TABLET DAILY Rx Instructions: TAKE 1 TABLET DAILY amlodipine 5 mg tablet See Rx Instructions .ROUTE .COMPLEX Qty: 90 3RF Dose Instruction: TAKE 1 TABLET DAILY Rx Instructions: TAKE 1 TABLET DAILY lidocaine 5 % adhesive patch,medicated 1 patch topical DAILY Qty: 30 0RF Rx Instructions: leave on most painful area for up to 12 hrs indapamide 2.5 mg tablet See Rx Instructions .ROUTE .COMPLEX Qty: 90 3RF Dose Instruction: TAKE 1 TABLET EVERY MORNING Rx Instructions: TAKE 1 TABLET EVERY MORNING hydrocodone-acetaminophen 5-325 mg tablet 1 tab PO Q4H PRN (Reason: pain) Qty: 20 0RF Iron (ferrous sulfate) 325 mg (65 mg iron) tablet 325 mg PO BID Qty: 60 0RF Colace 100 mg capsule 100 mg PO BID Qty: 60 0RF acetaminophen 325 mg capsule 325 mg PO Q4H PRN (Reason: fever or pain) Qty: 60 0RF Discharge Orders: Discharge ED (Routine); Ordered 03/07/23 Ordered By: Stephanie Valentin Referrals: Kaitlin Rankin MD [Primary Care Provider] - 1-3 days Discharge Diet: Advance as tolerated Discharge Activity: Resume usual activity Patient Instructions: Back Pain (ED) Coding Level of Care Code ED Junior Linux Systems Administrator for Chg Fwd Documented by User: Stephanie Valentin MD 03/07/23 22:55 HPI - Back Pain/Injury General: Chief Complaint: Back Pain/Injury Stated Complaint: back/bladder pain Time Seen by Provider: 03/07/23 21:36 [facility] ED PFS: Medical History Low back pain Anxiety Lumbar spondylolysis History of kidney stones Cholelithiases History of abnormal mammogram History of tobacco use Sleep apnea with use of continuous positive airway pressure (CPAP) At high risk for breast cancer Drug-induced ITP HCTZ-induced ITP Retinal hemorrhage of right eye Hyperlipidemia Hypertension Surgical History S/P anterior colporrhaphy (~12/11/22) Anterior colporrhapy augmented with allograft, single incision mid urethral sling and cystoscopy performed by Eric at [facility] History of carpal tunnel surgery of right wrist History of bunionectomy of left great toe History of bladder suspension procedure History of hysterectomy History of appendectomy History of bone marrow biopsy Family History Mother Cancer breast Father CAD (coronary artery disease) Sister Cancer breast Course Vital Signs: Vital signs: Vital Signs Temperature 97.8 F 03/07/23 19:54 Pulse Rate 57 L 03/07/23 22:54 Respiratory Rate 16 03/07/23 22:10 Blood Pressure 160/70 03/07/23 22:54 Pulse Oximetry 95 03/07/23 22:54 Oxygen Delivery Me thod Room Air 03/07/23 22:10 MDM - Back Pain/Injury Medical Decision Making Physical exam completed and documented, I will obtain radiographic examination of her lumbar and thoracic spine and provide the patient with Toradol anti-inflammatory as well as Flexeril written prescription. I have discussed the patient's case with the on-coming physician <Dr. Valentin > and they have assumed care of the patient. We have discussed the current lab/radiographic results that have been resulted and the pending tests. Patient presents with back pain is chronic in nature x-rays here are normal she is stable for discharge she is to follow-up with PCP and return if worsening. Labs 03/07/23 21:27 03/07/23 21:27 Radiology Impressions Lumbar Spine X-Ray 03/07/23 22:02 IMPRESSION: 1. Lumbar spine levoscoliosis with a Tierney angle of 16 degrees between superior endplate of L1 and inferior endplate of L5. 2. Multilevel severe disc space narrowing and productive degenerative endplate changes throughout the spine. 3. Scattered vascular calcifications. Thoracic Spine X-Ray 03/07/23 22:02 IMPRESSION: 1. Multilevel moderate to severe disc space narrowing and productive degenerative endplate changes throughout spine. 2. Bibasilar atelectasis versus infiltrate. Laboratory Results WBC 10.49 10^3/uL (3.29-11.43) 03/07/23: RBC 4.26 10^6/uL (3.85-5.65) 03/07/23: Hgb 12.80 g/dL (11.27-16.99) 03/07/23: Hct 38.3 % (36-47) 03/07/23: MCV 89.9 fl (85-98) 03/07/23: MCH 30.0 pg (27-33) 03/07/23: MCHC 33.4 g/dL (30-55) 03/07/23: RDW 12.7 % (12.1-15.1) 03/07/23: Plt Count 195 10^3/cmm (157-399) 03/07/23: MPV 10.5 fL (7.4-10.4) H 03/07/23: Neut % (Auto) 61.2 % 03/07/23: Lymph % (Auto) 28.7 % 03/07/23: [place] % (Auto) 5.5 % 03/07/23: Eos % (Auto) 3.5 % 03/07/23: Baso % (Auto) 0.7 % 03/07/23: Neut # (Auto) 6.42 10^3/uL (1.8-7.7) 03/07/23: Lymph # (Auto) 3.0 10^3/uL (0.8-4.8) 03/07/23: [place] # (Auto) 0.6 10^3/uL (0.2-0.9) 03/07/23: Eos # (Auto) 0.4 10^3/uL (0.0-0.8) 03/07/23 21:27 Baso # (Auto) 0.1 10^3/uL (0.0-0.1) 03/07/23 21: Nucleated RBC % (auto) 0 % 03/07/23 21: Nucleated RBCs # 0.0 /100WBC 03/07/23 21: Sodium 137 mmol/L (136-145) 03/07/23 21: Potassium 3.6 mmol/L (3.5-5.1) 03/07/23 21: Chloride 100 mmol/L (98-107) 03/07/23 21: Carbon Dioxide 24 mmol/L (22-29) 03/07/23: Anion Gap 16.6 (5-19) 03/07/23 21: BUN 23 mg/dL (8-23) 03/07/23 21: Creatinine 0.8 mg/dL (0.5-0.9) 03/07/23: GFR Calculation 72.0 mL/min (90-130) L 03/07/23 21: Glucose 237 mg/dL (65-115) H 03/07/23: Calculated Osmolality 295 mOsm/kg (285-295) 03/07/23: Calcium 9.8 mg/dL (8.5-10.5) 03/07/23: Total Bilirubin 0.2 mg/dL (0.15-1.2) 03/07/23 21: AST 22 U/L (0-32) 03/07/23: ALT 22 U/L (0-33) 03/07/23 21: Alkaline Phosphatase 95 U/L (35-105) 03/07/23 21: Total Protein 7.3 g/dL (6.6-8.7) 03/07/23: Albumin 4.4 g/dL (3.5-5.2) 03/07/23: Globulin 2.9 g/dL (1.3-4.6) 03/07/23: Lipase 17 U/L (13-60) 03/07/23 21: Urine Color Colorless (Yellow) 03/07/23: Urine Appearance Clear (CLEAR) 03/07/23 21:37 Urine pH 7 (5-7) 03/07/23 21:37 Ur Specific Fries 1.010 (1.005-1.030) 03/07/23 21:37 Urine Protein Neg (Negative) 03/07/23 21:37 Urine Glucose (UA) Norm (Normal) 03/07/23 21:37 Urine Ketones Negative (Negative) 03/07/23 21:37 Urine Blood Neg (Negative) 03/07/23 21:37 Urine Nitrate Negative (Negative) 03/07/23 21:37 Urine Bilirubin Neg (Negative) 03/07/23 21:37 Urine Urobilinogen Norm mg/dL (Negative) 03/07/23 21:37 Ur Leukocyte Esterase Negative (Negative) 03/07/23 21:37 XR interpretation done by ED provider, pending radiology final review ED provider radiology interpretation(s): xr t l spine: no acute fx Discharge Plan Discharge Patient Disposition: Home Clinical Impression: Back pain Condition: Stable Prescriptions: New Naprosyn 500 mg tablet 500 mg PO BID PRN (Reason: pain) Qty: 20 0RF No Action gabapentin 300 mg capsule 300 mg PO TID 90 Days Qty: 270 1RF escitalopram oxalate 10 mg tablet 15 mg PO DAILY Qty: 90 1RF methocarbamol 750 mg tablet 750 mg PO QID 90 Days Qty: 360 1RF celecoxib [Celebrex] 100 mg capsule 100 mg PO BID Qty: 180 0RF guaifenesin 600 mg tablet extended release 12hr 600 mg PO BID Qty: 30 0RF estradiol 0.01 % (0.1 mg/gram) cream 1 g vaginal DAILY Qty: 42.5 0RF Rx Instructions: for 14 days oxybutynin chloride 5 mg tablet 5 mg PO DAILY Qty: 90 0RF albuterol sulfate 2.5 mg /3 mL (0.083 %) solution for nebulization 2.5 mg inhalation Q4H PRN (Reason: shortness of breath or wheezing) Qty: 75 0RF atorvastatin 40 mg tablet See Rx Instructions .ROUTE .COMPLEX Qty: 90 3RF Dose Instruction: TAKE 1 TABLET DAILY Rx Instructions: TAKE 1 TABLET DAILY ezetimibe 10 mg tablet See Rx Instructions .ROUTE .COMPLEX Qty: 90 3RF Dose Instruction: TAKE 1 TABLET DAILY Rx Instructions: TAKE 1 TABLET DAILY (DME) CPAP supplies See Rx Instructions .Route .MEDSUPPLY Qty: 1 0RF Rx Instructions: As directed losartan 100 mg tablet See Rx Instructions .ROUTE .COMPLEX Qty: 90 3RF Dose Instruction: TAKE 1 TABLET DAILY Rx Instructions: TAKE 1 TABLET DAILY amlodipine 5 mg tablet See Rx Instructions .ROUTE .COMPLEX Qty: 90 3RF Dose Instruction: TAKE 1 TABLET DAILY Rx Instructions: TAKE 1 TABLET DAILY lidocaine 5 % adhesive patch,medicated 1 patch topical DAILY Qty: 30 0RF Rx Instructions: leave on most painful area for up to 12 hrs indapamide 2.5 mg tablet See Rx Instructions .ROUTE .COMPLEX Qty: 90 3RF Dose Instruction: TAKE 1 TABLET EVERY MORNING Rx Instructions: TAKE 1 TABLET EVERY MORNING hydrocodone-acetaminophen 5-325 mg tablet 1 tab PO Q4H PRN (Reason: pain) Qty: 20 0RF Iron (ferrous sulfate) 325 mg (65 mg iron) tablet 325 mg PO BID Qty: 60 0RF Colace 100 mg capsule 100 mg PO BID Qty: 60 0RF acetaminophen 325 mg capsule 325 mg PO Q4H PRN (Reason: fever or pain) Qty: 60 0RF Discharge Orders: Discharge ED (Routine); Ordered 03/07/23 Ordered By: Stephanie Valentin Referrals: Kaitlin Rankin MD [Primary Care Provider] - 1-3 days Discharge Diet: Advance as tolerated Discharge Activity: Resume usual activity Patient Instructions: Back Pain (ED) Coding Level of Care Code ED Junior Linux Systems Administrator for Joselo Godwin
[2023-03-07 21:47] LABS: Alanine Aminotransferase 22 U/L (0-33); Albumin Level 4.4 g/dL (3.5-5.2); Alkaline Phosphatase 95 U/L (35-105); Anion Gap 16.6 (5-19); Aspartate Amino Transferase 22 U/L (0-32); Blood Urea Nitrogen 23 mg/dL (8-23); Calcium 9.8 mg/dL (8.5-10.5); Carbon Dioxide 24 mmol/L (22-29); Chloride 100 mmol/L (98-107); Globulin 2.9 g/dL (1.3-4.6); Glucose 237 mg/dL (65-115); Lipase 17 U/L (13-60); Osmolality Calculated 295 mOsm/kg (285-295); Potassium 3.6 mmol/L (3.5-5.1); Sodium 137 mmol/L (136-145); Total Bilirubin 0.2 mg/dL (0.15-1.2); Total Protein 7.3 g/dL (6.6-8.7)
--- NOTE | 2023-03-07 22:02 | XRR_ITS ---
PROCEDURE INFORMATION: Exam: XR Thoracic Spine Exam date and time: 03/07/2023 10:24 PM Age: 67 years old Clinical indication: Pain in thoracic spine; Patient HX: Upper/lower back pain post bladder surg; No known injury TECHNIQUE: Imaging protocol: Radiologic exam of the thoracic spine. Views: 3 views. COMPARISON: CR XR chest 2V* [id number] 01/04/2022 11:26 AM FINDINGS: Bones/joints: Multilevel moderate to severe disc space narrowing and productive degenerative endplate changes throughout spine. Soft tissues: Unremarkable. Lungs: Bibasilar atelectasis versus infiltrate. XR/XR thoracic spine 3V* [id number] IMPRESSION: 1. Multilevel moderate to severe disc space narrowing and productive degenerative endplate changes throughout spine. 2. Bibasilar atelectasis versus infiltrate.
--- NOTE | 2023-03-07 22:02 | XRR_ITS ---
PROCEDURE INFORMATION: Exam: XR Lumbosacral Spine Exam date and time: 03/07/2023 10:24 PM Age: 67 years old Clinical indication: Lumbago; Patient HX: Upper/lower back pain post bladder surg; No known injury TECHNIQUE: Imaging protocol: Radiologic exam of the lumbosacral spine. Views: 2 or 3 views. COMPARISON: CR (CHEST, ) 03/07/2023 10:24 PM FINDINGS: Bones/joints: Lumbar spine levoscoliosis with a Tierney angle of 16 degrees between superior endplate of L1 and inferior endplate of L5. Multilevel severe disc space narrowing and productive degenerative endplate changes throughout the spine. Soft tissues: Unremarkable. Vasculature: Scattered vascular calcifications. XR/XR lumbar spine 2-3V* [id number] IMPRESSION: 1. Lumbar spine levoscoliosis with a Tierney angle of 16 degrees between superior endplate of L1 and inferior endplate of L5. 2. Multilevel severe disc space narrowing and productive degenerative endplate changes throughout the spine. 3. Scattered vascular calcifications.
[2023-03-07 22:10] VITALS: BP 158/95; PULSE 76; RESP 16; O2SAT 96
[2023-03-07] MEDS: ketorolac 60 mg/2 mL INJ IM (22:16)
[2023-03-07 22:17] LABS: Add Urine Microscopic? NO; Charge for UA Resulting for Rev
[2023-03-07 22:19] LABS: Bilirubin Urine Neg (Negative); Blood Urine Neg (Negative); Glucose Urine UA Norm (Normal); Ketones Urine Negative (Negative); Leukocyte Esterase Urine Negative (Negative); Nitrate Urine Negative (Negative); Protein Urine Neg (Negative); Urine Appearance Clear (CLEAR); Urine Color Colorless (Yellow); Urobilinogen Urine Norm (Negative); pH Urine 7 (5-7)
[2023-03-07 22:54] VITALS: BP 160/70; PULSE 57; O2SAT 95
--- NOTE | 2023-03-08 03:03 | DCPLANNER ---
Message sent to Ortho for a follow up with Alana-Back pain
== END 2023-03-07 22:59 | disposition home or self-care (01) ==
PROVIDERS: Emergency Provider Emergency Medicine; PCP Family Medicine
DX: M54.50 Low back pain, unspecified (principal)
CPT/HCPCS: 36415; 72072; 72100; 80053; 81003; 83690; 85025; 96372; 99284; J1885

== ENCOUNTER → 2023-03-12 13:05 | Outpatient (BNVA) | payer MEDICARE, OTHER, SELFPAY | PROVIDERS: PCP Family Medicine; Visit Provider Family Medicine | DX: D69.59 Other secondary thrombocytopenia (principal); T50.905A Adverse effect of unspecified drugs, medicaments and biological substances, initial encounter; M54.50 Low back pain, unspecified; Z79.899 Other long term (current) drug therapy | CPT/HCPCS: 85025 ==

== ENCOUNTER → 2023-03-14 08:03 | Outpatient (BNVA) | payer MEDICARE, OTHER, SELFPAY | PROVIDERS: PCP Family Medicine; Visit Provider Podiatrist Foot & Ankle Surgery | DX: L60.0 Ingrowing nail (principal); L60.3 Nail dystrophy | CPT/HCPCS: 11750; 99203 ==

== ENCOUNTER → 2023-03-21 13:08 | Outpatient (BNVA) | payer MEDICARE, OTHER, SELFPAY | PROVIDERS: PCP Family Medicine; Visit Provider Orthopaedic Surgery | DX: M48.062 Spinal stenosis, lumbar region with neurogenic claudication (principal) | CPT/HCPCS: 72120; 99204 ==

== ENCOUNTER → 2023-03-28 11:10 | Outpatient (BNVA) | payer MEDICARE, OTHER, SELFPAY | PROVIDERS: PCP Family Medicine; Visit Provider Podiatrist Foot & Ankle Surgery | DX: L60.0 Ingrowing nail (principal) | CPT/HCPCS: 99213 ==

== ENCOUNTER 2023-04-15 08:25 | Outpatient (CLI) | payer MEDICARE, OTHER, SELFPAY ==
--- NOTE | 2023-04-15 08:45 | MR_ITS ---
WS: [id number] MRI LUMBAR SPINE NONCONTRAST HISTORY: back pain COMPARISON: None available. TECHNIQUE: Sagittal and axial multisequence imaging is submitted. Straightening of the normal cervical lordosis. Disc and osteophyte contact on the cord and foramina a t C5-6 and C6-7. T3-4 Central disc protrusion contacts the cord. There are additional smaller mid tho racic disc protrusions contacting the cord. Scoliosis with straightening of the normal lumbar lordosis. L3 retrolisthesis by 4 mm. L2 retrolisthe sis by 3 mm. Disc spaces are all narrowed and desiccated. Small amount of marrow edema in the anterior L2 vertebra l body. No acute fractures. Conus terminates normally at L1-2 disc level. L1-L2: Marked annular disc bulging, osteophytic ridging and mild facet arthritis. Disc bases narrowed . There is a larger disc osteophyte in the LEFT foramen. Most significant contact on the LEFT L1 and L2 nerve roots. Mild central and bilateral subarticular recess stenosis with moderate to severe LEFT and mild RIGHT foraminal stenosis. L2-L3: Diffuse annular disc bulging, osteophytic ridging and facet arthritis. Very mild bilateral for aminal stenosis. L3-L4: Deformity of the thecal sac due to the scoliosis and asymmetric disc disease. Asymmetric facet joint arthritis, RIGHT greater than LEFT. Disc osteophyte most significant in the proximal RIGHT for amen contacting the RIGHT lateral thecal sac. Moderate central with bilateral subarticular recess and foraminal stenosis. Most significant disc encroachment into the RIGHT subarticular recess. L4-L5: Diffuse annular disc bulging with moderate ligamentum flavum and facet arthritis. Disc is asym metrically extending to the LEFT foramen. Mild central and bilateral subarticular recess stenosis. Mi ld bilateral foraminal stenosis but greater on the LEFT due to the asymmetric disc bulging. L5-S1: Diffuse annular disc bulging, moderate sized LEFT foraminal disc protrusion with annular fissu re and osteophytic ridging. Smaller disc protrusion RIGHT foramen. There is mild disc contact on the S1 nerve roots. Slightly greater encroachment on the LEFT involving the L5 and S1 nerve roots. Paravertebral soft tissues are negative. IMPRESSION: 1. Advanced multilevel degenerative changes throughout the lumbar spine. Facet and disc disease and osteophytic ridging at all levels. 2. L1-2: Mild central, bilateral subarticular recess and moderate to severe LEFT and mild RIGHT fora elaine stenosis. Larger disc osteophyte in the LEFT foramen. 3. L3-4: Moderate central with bilateral subarticular recess and foraminal stenosis. Most significan t disc encroachment into the RIGHT subarticular recess. 4. L4-5: Mild central, bilateral subarticular recess and foraminal stenosis. Slightly greater stenos is on the LEFT due to the asymmetric disc bulging. 5. L5-S1: Moderate size LEFT foraminal disc protrusion with annular fissure. Osteophytic ridging. Sm aller protrusion RIGHT foramen. There is mild contact on the S1 nerve roots. Slightly greater contact on the LEFT L5 and S1 nerve roots.
== END 2023-04-15 08:26 | disposition home or self-care (01) ==
LOC: RAD 08:26
PROVIDERS: PCP Family Medicine; Visit Provider Orthopaedic Surgery
DX: M47.816 Spondylosis without myelopathy or radiculopathy, lumbar region (principal); M48.061 Spinal stenosis, lumbar region without neurogenic claudication; M25.78 Osteophyte, vertebrae
CPT/HCPCS: 72148

== ENCOUNTER → 2023-04-16 10:30 | Outpatient (BNVA) | payer MEDICARE, OTHER, SELFPAY | PROVIDERS: PCP Family Medicine; Visit Provider Orthopaedic Surgery | DX: M48.062 Spinal stenosis, lumbar region with neurogenic claudication; M41.56 Other secondary scoliosis, lumbar region | CPT/HCPCS: 99214 ==

== ENCOUNTER → 2023-04-23 07:10 | Outpatient (BNVA) | payer MEDICARE, OTHER, SELFPAY | PROVIDERS: PCP Family Medicine; Visit Provider Podiatrist Foot & Ankle Surgery | DX: L60.0 Ingrowing nail (principal) | CPT/HCPCS: 99213 ==

== ENCOUNTER → 2023-05-16 10:07 | Outpatient (BNVA) | payer MEDICARE, OTHER, SELFPAY | PROVIDERS: PCP Family Medicine; Visit Provider Podiatrist Foot & Ankle Surgery | DX: L60.0 Ingrowing nail (principal) | CPT/HCPCS: 99213 ==

== ENCOUNTER → 2023-05-20 08:33 | Outpatient (BNVA) | payer MEDICARE, OTHER, SELFPAY | PROVIDERS: PCP Family Medicine; Visit Provider Anesthesiology Pain Medicine | DX: M48.062 Spinal stenosis, lumbar region with neurogenic claudication (principal); M47.816 Spondylosis without myelopathy or radiculopathy, lumbar region; R73.03 Prediabetes | CPT/HCPCS: 83036; 99204 ==

== ENCOUNTER → 2023-06-03 13:07 | Outpatient (BNVA) | payer MEDICARE, OTHER, SELFPAY | PROVIDERS: PCP Family Medicine; Visit Provider Anesthesiology Pain Medicine | DX: M47.816 Spondylosis without myelopathy or radiculopathy, lumbar region (principal); M48.062 Spinal stenosis, lumbar region with neurogenic claudication | CPT/HCPCS: 64493; 64494; 64495; J3490 ==

== ENCOUNTER → 2023-06-13 10:12 | Outpatient (BNVA) | payer MEDICARE, OTHER, SELFPAY | PROVIDERS: PCP Family Medicine; Visit Provider Podiatrist Foot & Ankle Surgery | DX: L60.0 Ingrowing nail (principal) | CPT/HCPCS: 99213 ==

== ENCOUNTER → 2023-06-17 09:41 | Outpatient (BNVA) | payer MEDICARE, OTHER, SELFPAY | PROVIDERS: PCP Family Medicine; Visit Provider Anesthesiology Pain Medicine | DX: M48.062 Spinal stenosis, lumbar region with neurogenic claudication (principal); M47.816 Spondylosis without myelopathy or radiculopathy, lumbar region | CPT/HCPCS: 99214 ==

== ENCOUNTER → 2023-07-09 13:05 | Outpatient (BNVA) | payer MEDICARE, OTHER, SELFPAY | PROVIDERS: PCP Family Medicine; Visit Provider Anesthesiology Pain Medicine | DX: M47.816 Spondylosis without myelopathy or radiculopathy, lumbar region (principal); M48.062 Spinal stenosis, lumbar region with neurogenic claudication | CPT/HCPCS: 64493; 64494; 64495; J3490 ==

== ENCOUNTER → 2023-07-24 09:00 | Outpatient (BNVA) | payer MEDICARE, OTHER, SELFPAY | PROVIDERS: PCP Family Medicine; Visit Provider Family Medicine | DX: Z78.0 Asymptomatic menopausal state (principal); E11.9 Type 2 diabetes mellitus without complications; D69.59 Other secondary thrombocytopenia; Z79.899 Other long term (current) drug therapy | CPT/HCPCS: 80053; 80061; 82043; 83036; 85025 ==

== ENCOUNTER → 2023-07-29 10:25 | Outpatient (BNVA) | payer MEDICARE, OTHER, SELFPAY | PROVIDERS: PCP Family Medicine; Visit Provider Anesthesiology Pain Medicine | DX: M48.062 Spinal stenosis, lumbar region with neurogenic claudication (principal); M47.816 Spondylosis without myelopathy or radiculopathy, lumbar region | CPT/HCPCS: 99214 ==

== ENCOUNTER → 2023-10-22 08:43 | Outpatient (BNVA) | payer MEDICARE, OTHER, SELFPAY | PROVIDERS: PCP Family Medicine; Visit Provider Family Medicine | DX: E11.9 Type 2 diabetes mellitus without complications (principal) | CPT/HCPCS: 83036 ==

== ENCOUNTER 2023-12-04 10:38 | Outpatient (CLI) | payer MEDICARE, OTHER, SELFPAY ==
--- NOTE | 2023-12-04 10:43 | MM_ITS ---
WS: [id number] BILATERAL SCREENING DIGITAL TOMOSYNTHESIS MAMMOGRAM WITH CAD HISTORY: Screening COMPARISON: 11/28/2022, 11/16/2021, 06/15/2021 Bilateral CC and MLO views with tomosynthesis and synthetic mammography submitted. Computer aided det ection analyzed. Breast composition: There are scattered areas of fibroglandular density. No suspicious masses, microc alcifications or architectural distortion. Scattered asymmetries and calcifications within each breas t have remained stable or becoming less distinct over several prior examinations. There is no new mas s or calcification. MM/MM scr tomosynthesis [id number] IMPRESSION: BI-RADS: 2 - Benign. FOLLOW UP: 1 Year Follow-up
== END 2023-12-04 10:39 | disposition home or self-care (01) ==
LOC: RAD 10:39
PROVIDERS: PCP Family Medicine; Visit Provider Family Medicine
DX: Z12.31 Encounter for screening mammogram for malignant neoplasm of breast (principal); R92.323 Mammographic fibroglandular density, bilateral breasts; N64.89 Other specified disorders of breast; R92.1 Mammographic calcification found on diagnostic imaging of breast
CPT/HCPCS: 77063; 77067

== ENCOUNTER → 2024-02-25 13:46 | Outpatient (BNVA) | payer MEDICARE, OTHER, SELFPAY | PROVIDERS: PCP Family Medicine; Visit Provider Anesthesiology Pain Medicine | DX: M48.062 Spinal stenosis, lumbar region with neurogenic claudication (principal); M47.816 Spondylosis without myelopathy or radiculopathy, lumbar region | CPT/HCPCS: 99214 ==

== ENCOUNTER → 2024-03-11 08:45 | Outpatient (BNVA) | payer MEDICARE, OTHER, SELFPAY | PROVIDERS: PCP Family Medicine; Visit Provider Anesthesiology Pain Medicine | DX: M47.816 Spondylosis without myelopathy or radiculopathy, lumbar region (principal); M48.062 Spinal stenosis, lumbar region with neurogenic claudication | CPT/HCPCS: 64635; 64636; 77002; J1010 ==

== ENCOUNTER → 2024-03-25 08:16 | Outpatient (BNVA) | payer MEDICARE, OTHER, SELFPAY | PROVIDERS: PCP Family Medicine; Visit Provider Anesthesiology Pain Medicine | DX: M47.816 Spondylosis without myelopathy or radiculopathy, lumbar region (principal); E11.9 Type 2 diabetes mellitus without complications; Z01.818 Encounter for other preprocedural examination; M48.062 Spinal stenosis, lumbar region with neurogenic claudication | CPT/HCPCS: 36416; 64635; 64636; 82962; J1010 ==

== ENCOUNTER → 2024-04-07 08:55 | Outpatient (BNVA) | payer MEDICARE, OTHER, SELFPAY | PROVIDERS: PCP Family Medicine; Visit Provider Nurse Practitioner Family | DX: M48.062 Spinal stenosis, lumbar region with neurogenic claudication (principal); M47.816 Spondylosis without myelopathy or radiculopathy, lumbar region | CPT/HCPCS: 99213 ==

== ENCOUNTER → 2024-04-15 08:21 | Outpatient (BNVA) | payer MEDICARE, OTHER, SELFPAY | PROVIDERS: PCP Family Medicine; Visit Provider Family Medicine | DX: E11.9 Type 2 diabetes mellitus without complications (principal) | CPT/HCPCS: 80053; 80061; 82607; 83036 ==

== ENCOUNTER → 2024-06-22 12:43 | Outpatient (BNVA) | payer MEDICARE, OTHER, SELFPAY | PROVIDERS: PCP Family Medicine; Visit Provider Family Medicine | DX: N32.81 Overactive bladder (principal); R30.0 Dysuria; I10 Essential (primary) hypertension; D69.59 Other secondary thrombocytopenia; T50.905A Adverse effect of unspecified drugs, medicaments and biological substances, initial encounter; E11.9 Type 2 diabetes mellitus without complications | CPT/HCPCS: 81000 ==

== ENCOUNTER → 2024-10-16 08:29 | Outpatient (BNVA) | payer MEDICARE, OTHER, SELFPAY | PROVIDERS: PCP Family Medicine; Visit Provider Family Medicine | DX: E11.9 Type 2 diabetes mellitus without complications (principal); I10 Essential (primary) hypertension; D69.59 Other secondary thrombocytopenia; T50.905A Adverse effect of unspecified drugs, medicaments and biological substances, initial encounter | CPT/HCPCS: 80053; 83036; 85025 ==

== ENCOUNTER 2024-10-23 09:32 | Outpatient (CLI) | payer MEDICARE, OTHER, SELFPAY ==
--- NOTE | 2024-10-23 09:37 | XR_ITS ---
WS: [id number] Left knee, 3 views, 10/23/2024 Clinical Data: left medial knee pain Comparison: None. Findings: No fractures or dislocations are seen. The joint spaces are normal. The patella shows an anterior superior spur. The soft tissues are unremarkable. XR/XR knee LT 3V* [id number] Impression: Osteoarthritic spur of anterior superior left patella.
== END 2024-10-23 09:33 | disposition home or self-care (01) ==
LOC: RAD 09:34
PROVIDERS: PCP Family Medicine; Visit Provider Family Medicine
DX: M17.12 Unilateral primary osteoarthritis, left knee (principal); M25.762 Osteophyte, left knee
CPT/HCPCS: 73562

== ENCOUNTER → 2024-10-26 09:34 | Outpatient (BNVA) | payer MEDICARE, OTHER, SELFPAY | PROVIDERS: PCP Family Medicine; Visit Provider Anesthesiology Pain Medicine | DX: M48.062 Spinal stenosis, lumbar region with neurogenic claudication (principal); M47.816 Spondylosis without myelopathy or radiculopathy, lumbar region | CPT/HCPCS: 99214 ==

== ENCOUNTER → 2024-10-27 14:29 | Outpatient (BNVA) | payer MEDICARE, OTHER, SELFPAY | PROVIDERS: PCP Family Medicine; Visit Provider Family Medicine | DX: R39.89 Other symptoms and signs involving the genitourinary system (principal); M25.562 Pain in left knee; I10 Essential (primary) hypertension; E78.5 Hyperlipidemia, unspecified; E11.9 Type 2 diabetes mellitus without complications; M54.50 Low back pain, unspecified | CPT/HCPCS: 81000 ==

== ENCOUNTER → 2024-11-03 14:40 | Outpatient (BNVA) | payer MEDICARE, OTHER, SELFPAY | PROVIDERS: PCP Family Medicine; Visit Provider Anesthesiology Pain Medicine | DX: M54.16 Radiculopathy, lumbar region (principal); E11.9 Type 2 diabetes mellitus without complications; Z01.818 Encounter for other preprocedural examination | CPT/HCPCS: 36416; 62323; J1010; J9999 ==

== ENCOUNTER → 2024-11-17 08:29 | Outpatient (BNVA) | payer MEDICARE, OTHER, SELFPAY | PROVIDERS: PCP Family Medicine; Visit Provider Anesthesiology Pain Medicine | DX: M48.062 Spinal stenosis, lumbar region with neurogenic claudication (principal); M47.816 Spondylosis without myelopathy or radiculopathy, lumbar region | CPT/HCPCS: 99214 ==

== ENCOUNTER 2024-12-02 13:34 | Outpatient (CLI) | payer MEDICARE, OTHER, SELFPAY ==
--- NOTE | 2024-12-02 13:45 | MR_ITS ---
WS: [id number] MRI LUMBAR SPINE NONCONTRAST TECHNIQUE: Sagittal T1, T2 and STIR imaging. Axial T1 and T2 imaging. CLINICAL INFORMATION: M54.16 - Radiculopathy, lumbar region COMPARISON: MRI 2023 FINDINGS: Mild lumbar curve. No acute compression. Multilevel disc space degeneration throughout the lumbar spine. Disc space narrowing worse at L1-L3 and L5-S1. L1-L2: Mild disc bulging. Narrowing of the LEFT greater than RIGHT subarticular recess with mild LEFT foraminal narrowing. Mild facet arthropathy. L2-L3: Shallow RIGHT paracentral protrusion. Slight narrowing of the RIGHT subarticular recess. Spinal canal and foramen are patent. Mild facet arthropathy. L3-L4: RIGHT subarticular disc protrusion. Disc material fills the RIGHT subarticular recess and impinges the traversing RIGHT L4 nerve root. Mild central canal stenosis. Mild facet arthropathy. Mild LEFT foraminal narrowing. L4-L5: Annular bulging. LEFT foraminal protrusion with mild LEFT foraminal narrowing and slight contact LEFT L4 nerve root. Moderate facet arthropathy. L5-S1: Mild annular bulging with slight encroachment LEFT S1 nerve root. LEFT eccentric disc osteophyte complex encroaches on the far exiting LEFT L5 nerve root unchanged. Moderate facet arthropathy. Visualized pelvic bony structures: Normal. Paravertebral soft tissues: Normal. Small bilateral renal cysts. MR/MR lumbar spine wo con* [id number] IMPRESSION: 1. RIGHT subarticular disc protrusion L3-4 impinges the traversing RIGHT L4 ne rve root in the subarticular recess. Recommend correlation for RIGHT L4 nerve r oot symptoms. This appears progressed compared to previous. Mild RIGHT L3-4 for aminal narrowing. Mild central canal stenosis at this level. 2. LEFT eccentric disc bulging L4-5 with mild LEFT foraminal narrowing and sli ght impingement on the exiting LEFT L4 nerve root. This also appears slightly p rogressed compared to previous. 3. LEFT eccentric disc osteophyte complex L5-S1 with mild to moderate LEFT for aminal narrowing and contact of the far exiting LEFT L5 nerve root. This appear s similar to previous. 4. Moderate facet arthropathy L4-L5 and L5-S1. 5. Mild narrowing of the RIGHT L2-3 subarticular recess
== END 2024-12-02 13:35 | disposition home or self-care (01) ==
LOC: RAD 13:35
PROVIDERS: PCP Family Medicine; Visit Provider Anesthesiology Pain Medicine
DX: M51.16 Intervertebral disc disorders with radiculopathy, lumbar region (principal); M48.061 Spinal stenosis, lumbar region without neurogenic claudication; M47.26 Other spondylosis with radiculopathy, lumbar region; M25.78 Osteophyte, vertebrae
CPT/HCPCS: 72148

== ENCOUNTER 2024-12-09 10:33 | Outpatient (CLI) | payer MEDICARE, OTHER, SELFPAY ==
--- NOTE | 2024-12-09 10:37 | MM_ITS ---
WS: [id number] BILATERAL SCREENING DIGITAL TOMOSYNTHESIS MAMMOGRAM WITH CAD HISTORY: SCREENING COMPARISON: 12/04/2023, 11/28/2022, 11/16/2021, 04/25/2016 Bilateral CC and MLO views with tomosynthesis and synthetic mammography submitted. Computer aided detection analyzed. Breast composition: There are scattered areas of fibroglandular density. No suspicious masses, microcalcifications or architectural distortion. Reidentified is the lobulated mass in the central LEFT breast measures 1.4 x 2.9 x 2.5 cm. Mass has been present at least since 2017. Asymmetries in the RIGHT breast are stable. No new mass or distortion. MM/MM scr BI tomosynthesis [id number] IMPRESSION: BI-RADS: 2 - Benign. FOLLOW UP: 1 Year Follow-up
== END 2024-12-09 10:34 | disposition home or self-care (01) ==
LOC: RAD 10:34
PROVIDERS: PCP Family Medicine; Visit Provider Family Medicine
DX: Z12.31 Encounter for screening mammogram for malignant neoplasm of breast (principal); R92.323 Mammographic fibroglandular density, bilateral breasts; N63.42 Unspecified lump in left breast, subareolar
CPT/HCPCS: 77063; 77067

== ENCOUNTER → 2024-12-21 09:38 | Outpatient (BNVA) | payer MEDICARE, OTHER, SELFPAY | PROVIDERS: PCP Family Medicine; Visit Provider Anesthesiology Pain Medicine | DX: M48.062 Spinal stenosis, lumbar region with neurogenic claudication (principal); M47.816 Spondylosis without myelopathy or radiculopathy, lumbar region | CPT/HCPCS: 99214 ==